=== PATIENT | female | born 1945 | race Caucasian/White ===

== ENCOUNTER 2016-07-28 08:28 | Emergency (ER) | payer BC, OTHER ==
[~2016-07-28] VITALS: Wt 79.0 kg
[2016-07-28] MEDS ORDERED: FAMOTIDINE 20 MG INJ IV STA (08:57)
[2016-07-28] MEDS ORDERED: LIDOCAINE/MYLANTA 40 ML BTL PO STA (08:57)
[2016-07-28] MEDS ORDERED: ONDANSETRON 4 MG INJ IV STA (08:57)
[2016-07-28] MEDS ORDERED: SOD CHLORIDE 0.9% 500 ML IV STA (08:57)
[2016-07-28] MEDS ORDERED: morphine 4 MG/ML VIAL IV STA (08:57)
--- NOTE | 2016-07-28 09:23 | ERA ---
ER Documentation Chief Complaint Date/Time DATE: 07/28/16 TIME: 09:21 Chief Complaint LEFT SIDED FLANK PAIN X 2 DAYS WITH FEVER/CHILLS HPI This is a 71-year-old female complaining of left upper quadrant pain that seems similar to her prior history of gastritis. The pain is described as a sharp pain sometimes worse after eating. She has no vomiting diarrhea no dysuria no chest pain or shortness of breath. The pain is off and on and not radiating. ROS All systems reviewed and are negative except as per history of present illness. Medications Home Meds Active Scripts Polyethylene Glycol* (Miralax*) 17 Gm Powd.pack, 17 GM PO DAILY, #30 PACKET Prov:ION ELDRIDGESTHELLENS A. DO 07/28/16 Omeprazole* (Omeprazole*) 40 Mg Capsule.dr, 40 MG PO DAILY, #30 CAP Prov:LEKKOSIONSTOLOS A. DO 07/28/16 Reported Medications Sucralfate* (Carafate*) 1 Gm Tab, 1 GM PO AC MEALS AND BEDTIME, TAB 07/28/16 Omeprazole* (Omeprazole*) 20 Mg Capsule.dr, 20 MG PO DAILY, #30 CAP 07/28/16 Nifedipine* (Nifedipine ER*) 30 Mg Tablet.sa, 30 MG PO DAILY, TAB.SA 07/28/16 Hydrochlorothiazide* (Hydrochlorothiazide*) 25 Mg Tab, 25 MG PO DAILY, #30 TAB 07/28/16 Allergies Allergies: Coded Allergies: No Known Allergy (Unverified , 11/11/13) PMhx/Soc Medical and Surgical Hx: pt denies Medical Hx History of Surgery: Yes (unknown) Anesthesia Reaction: No Hx Neurological Disorder: No Hx Respiratory Disorders: No Hx Cardiac Disorders: No Hx Psychiatric Problems: No Hx Miscellaneous Medical Probl: Yes (htn, gerd, constipation, hypothyroid) Hx Alcohol Use: No Hx Substance Use: No Hx Tobacco Use: No Smoking Status: Never smoker FmHx Family History: No coronary disease Physical Exam Vitals Vital Signs Date Time Temp Pulse Resp B/P Pulse Ox O2 Delivery O2 Flow Rate FiO2 07/28/16 09:30 75 18 161/67 99 Room Air 07/28/16 08:35 98.0 66 18 163/72 99 Physical Exam Const: Well-developed, well-nourished Head: Atraumatic, normocephalic Eyes: Normal Conjunctiva, PERRLA, EOMI, normal sclera, no nystagmus ENT: Normal External Ears, Nose and Mouth, moist mucus membranes. Neck: Full range of motion. No meningismus, no lymphadenopathy. Resp: Clear to auscultation bilaterally, no wheezing, rhonchi, rales Cardio: Regular rate and rhythm, no murmurs, S1 S2 present Abd: Soft, moderate left upper quadrant tenderness and mild left lower quadrant tenderness, non distended. Normal bowel sounds, no guarding or rebound , no pulsitile abdominal masses or bruits Skin: No petechiae or rashes, no ecchymosis , no maculopapular rash Back: No midline or flank tenderness Ext: No cyanosis, or edema, FROM x 4, normal inspection, neurovascularly intact x 4 Neur: Awake and alert, STR 5/5 x 4, sensation intact x 4, no focal findings, cerebellum intact Psych: Normal Mood and Affect Result Diagram: 07/28/16 0940 07/28/16 0940 Results 24 hrs Laboratory Tests Test 07/28/16 09:40 White Blood Count 7.610^3/ul Red Blood Count 4.4810^6/ul Hemoglobin 14.9g/dl Hematocrit 42.0% Mean Corpuscular Volume 93.8fl Mean Corpuscular Hemoglobin 33.3pg Mean Corpuscular Hemoglobin Concent 35.5g/dl Red Cell Distribution Width 12.3% Platelet Count 55144^3/UL Mean Platelet Volume 10.3fl Neutrophils % 73.1% Lymphocytes % 20.4% Monocytes % 5.7% Eosinophils % 0.1% Basophils % 0.4% Nucleated Red Blood Cells % 0.0/100WBC Neutrophils # 5.610^3/ul Lymphocytes # 1.610^3/ul Monocytes # 0.410^3/ul Eosinophils # 0.010^3/ul Basophils # 0.010^3/ul Nucleated Red Blood Cells # 0.010^3/ul Sodium Level 136mmol/L Potassium Level 2.9mmol/L Chloride Level 92mmol/L Carbon Dioxide Level 30mmol/L Anion Gap 17 Blood Urea Nitrogen 15mg/dl Creatinine 0.67mg/dl Glucose Level 124mg/dl Calcium Level 9.5mg/dl Total Bilirubin 0.3mg/dl Direct Bilirubin 0.00mg/dl Indirect Bilirubin 0.3mg/dl Aspartate Amino Transf (AST/SGOT) 33IU/L Alanine Aminotransferase (ALT/SGPT) 27IU/L Alkaline Phosphatase 104IU/L Total Protein 9.2g/dl Albumin 4.6g/dl Globulin 4.60g/dl Albumin/Globulin Ratio 1.00 Lipase 220U/L Current Medications Medications (Trade) Dose Ordered Sig/Nuha Route PRN Reason Start Time Stop Time Status Last Admin Dose Admin Sodium Chloride (NS) 500 ml @ 500 mls/hr Q1H STAT IV 07/28/16 08:57 07/28/16 09:56 DC 07/28/16 11:07 Morphine Sulfate (morphine) 4 mg ONCE STAT IV 07/28/16 08:57 07/28/16 08:59 DC 07/28/16 11:09 Ondansetron HCl (Zofran Inj) 4 mg ONCE STAT IV 07/28/16 08:57 07/28/16 08:59 DC 07/28/16 11:09 Famotidine (Pepcid Iv) 20 mg ONCE STAT IV 07/28/16 08:57 07/28/16 08:59 DC 07/28/16 11:09 Miscellaneous Medication 40 ml 40 ml ONCE STAT PO 07/28/16 08:57 07/28/16 08:59 DC 07/28/16 11:07 Potassium Chloride 20 meq/ Sodium Chloride 110 ml @ 55 mls/hr ONCE ONCE IVPB 07/28/16 11:00 07/28/16 12:59 DC 07/28/16 13:00 Sodium Chloride (NS) 100 ml @ ud STK-MED ONCE .ROUTE 07/28/16 11:48 07/28/16 11:49 DC 07/28/16 11:57 Iohexol (Omnipaque 300mg/ ml) 150 ml STK-MED ONCE .ROUTE 07/28/16 11:48 07/28/16 11:49 DC 07/28/16 11:57 Procedures/MDM PROCEDURE: CT scan of the abdomen and pelvis with and without IV contrast. CLINICAL INDICATION: Left lower quadrant and and left upper quadrant pain. TECHNIQUE: Thin section axial, coronal and sagittal images were performed through the abdomen and pelvis without contrast and then following the injection of 100 cc of Isovue 370. Low-dose protocol imaging was utilized. One or more of the following dose reduction techniques were used: - Automated exposure control. - Adjustment of the mA and/or kV according to patient size. Use of iterative reconstruction technique. Radiation Dose: CTDI: 21.1 and DLP: 1125.3. COMPARISON: Abdominal sonogram 05/27/2013. FINDINGS: Lungs and pleural space: The lungs are hyperinflated with increased AP diameter the chest noted. No acute infiltrate or pleural effusion is identified. No pulmonary nodules identified. Heart: Normal as visualized. No pericardial effusion is present. The liver, common bile duct and gallbladder: There is enlarged measuring 16.7 cm AP. The hepatic and portal veins are patent. The gallbladder and gallbladder wall are normal. The extrahepatic common bile duct is dilated measuring 8.5 mm. Pancreas: The pancreas is normal. Gastrointestinal: There is no hiatal hernia. The stomach and small bowel loops are unremarkable. There is fecal material throughout most of the colon. Symmetric thickening of the rectal ampulla is attributed to incomplete distension. The vermiform appendix is normal. There is no evidence of diverticulosis or diverticulitis. A small midline umbilical hernia is identified measuring up to 3.8 cm and sagittal/AP diameter with the transverse diameter of the neck of the hernia measuring 1.4 cm. There is a second midline umbilical hernia located 3.8 cm inferior to the umbilicus. Neck of the hernia measures 1.6 cm. Kidneys and bladder : There are tiny benign subcapsular cyst arising off of lateral mid pole of the left kidney. Largest measures 6.8 mm. No additional follow-up recommended. The urinary bladder is normal. No bladder wall thickening or bladder stone is identified. Adrenal glands: Normal. Spleen: Normal. Lymph nodes: There is small calcified lymph nodes in the pelvis. No pathologically enlarged lymph node is identified.. Reproductive system: There is a 1.8 x 1.5 cm benign left ovarian cyst. There is a 7 mm calcification adjacent to the cyst. This would be best assessed with a pelvic sonogram but is likely benign. Bony elements: There are degenerative changes in the lower thoracic and lumbar spine. There is a space narrowing and vacuum disk phenomenon at L5-S1. Vasculature: Atherosclerotic vascular disease. no aneurysm or vascular stenosis is identified in the field of view. IMPRESSION: 1. Hepatomegaly. The liver measures 16.7 cm AP. Dilated extrahepatic common bile duct measuring 8.5 mm. No pancreatic mass or choledocholith is identified. 2. Constipation. 3. Small benign renal cysts are identified in conjunction with the left kidney which required no additional follow-up. 4. Midline umbilical hernia containing fat. The neck of the hernia measures 1.4 cm transverse. Hernia measures 3.8 cm sagittal. 5. 3.8 cm inferior to the umbilical hernia is a second midline anterior abdominal wall hernia measuring 2.5 cm AP with the neck of the hernia measuring 1.5 cm transverse. 6. Atherosclerotic vascular disease. 7. 1.8 by 1.5 cm benign left ovarian cyst. 6.7 mm calcification along the periphery of the cyst. The latter is likely a calcified pelvic lymph node. 8. Pulmonary hyperinflation. RPTAT:AAJJ Physician Carl Date Time Electronically viewed and signed by Compa Nick Physician on 07/28/2016 12:30 JM/ CC: RENATO ELDRIDGE DO Patient's blood work is unremarkable. The patient says it feels like prior gastritis and I feel this is consistent with her exam and history. We will provide her with some omeprazole and MiraLAX to clear the colon. A signs and symptoms to return Departure Diagnosis: Primary Impression: Constipation Qualified Code: K59.00 - Constipation, unspecified constipation type Additional Impression: Gastritis Qualified Code: K29.00 - Acute gastritis, presence of bleeding unspecified, unspecified gastritis type Condition: Stable RENATO ELDRIDGE DO July 28, 2016 09:23
[2016-07-28 10:16] LABS: ADD SCAN DIFF NO
[2016-07-28 10:21] LABS: BASOPHILS % 0.4 % (0.0-2.0); EOSINOPHILS % 0.1 % (0.0-7.0); HEMOGLOBIN 14.9 g/dl (12.0-16.0); LYMPHOCYTES # 1.6 10^3/ul (0.8-2.9); LYMPHOCYTES % 20.4 % (15.0-51.0); MEAN CORPUSCULAR HEMOGLOBIN 33.3 pg (29.0-33.0); MEAN CORPUSCULAR HGB CONC 35.5 g/dl (32.0-37.0); MEAN CORPUSCULAR VOLUME 93.8 fl (82.0-101.0); MEAN PLATELET VOLUME 10.3 fl (7.4-10.4); MONOCYTE # 0.4 10^3/ul (0.3-0.9); MONOCYTES % 5.7 % (0.0-11.0); NEUTROPHIL # 5.6 10^3/ul (1.6-7.5); NEUTROPHILS % 73.1 % (39.0-77.0); PLATELET COUNT 255 10^3/UL (140-415); RED BLOOD COUNT 4.48 10^6/ul (4.20-5.40); RED CELL DISTRIBUTION WIDTH 12.3 % (11.5-14.5); WHITE BLOOD COUNT 7.6 10^3/ul (4.8-10.8)
[2016-07-28 10:38] LABS: ALBUMIN 4.6 g/dl (3.3-4.9)
[2016-07-28 10:41] LABS: BILIRUBIN,INDIRECT 0.3 mg/dl (0-1.1); BILIRUBIN,TOTAL 0.3 mg/dl (0.2-1.3); CREATININE 0.67 mg/dl (0.44-1.00); TOTAL PROTEIN 9.2 g/dl (6.1-8.1)
[2016-07-28 10:42] LABS: CALCIUM 9.5 mg/dl (8.4-10.2)
[2016-07-28 10:46] LABS: POTASSIUM 2.9 mmol/L (3.5-5.1)
[2016-07-28] MEDS ORDERED: OMEP20CA16 PO (10:51)
[2016-07-28] MEDS ORDERED: NIFE30TA60 PO (10:51)
[2016-07-28] MEDS ORDERED: SUCR1TAB56 PO (10:51)
[2016-07-28] MEDS ORDERED: HYD25 PO (10:51)
[2016-07-28] MEDS ORDERED: POTASSIUM CHLORIDE 20 MEQ in SOD CHLORIDE 0.9% 100 ML IVPB ONE (11:00)
[2016-07-28] MEDS ORDERED: IOHEXOL 300MG/ML 150 ML BTL ONE (11:48)
[2016-07-28] MEDS ORDERED: SOD CHLORIDE 0.9% 100 ML ONE (11:48)
--- NOTE | 2016-07-28 12:30 | RADRPT ---
PROCEDURE: CT scan of the abdomen and pelvis with and without IV contrast. CLINICAL INDICATION: Left lower quadrant and and left upper quadrant pain. TECHNIQUE: Thin section axial, coronal and sagittal images were performed through the abdomen and pelvis without contrast and then following the injection of 100 cc of Isovue 370. Low-dose protocol imaging was utilized. One or more of the following dose reduction techniques were used: - Automated exposure control. - Adjustment of the mA and/or kV according to patient size. Use of iterative reconstruction technique. Radiation Dose: CTDI: 21.1 and DLP: 1125.3. COMPARISON: Abdominal sonogram 05/27/2013. FINDINGS: Lungs and pleural space: The lungs are hyperinflated with increased AP diameter the chest noted. No acute infiltrate or pleural effusion is identified. No pulmonary nodules identified. Heart: Normal as visualized. No pericardial effusion is present. The liver, common bile duct and gallbladder: There is enlarged measuring 16.7 cm AP. The hepatic an d portal veins are patent. The gallbladder and gallbladder wall are normal. The extrahepatic commo n bile duct is dilated measuring 8.5 mm. Pancreas: The pancreas is normal. Gastrointestinal: There is no hiatal hernia. The stomach and small bowel loops are unremarkable. T here is fecal material throughout most of the colon. Symmetric thickening of the rectal ampulla is attributed to incomplete distension. The vermiform appendix is normal. There is no evidence of div erticulosis or diverticulitis. A small midline umbilical hernia is identified measuring up to 3.8 c m and sagittal/AP diameter with the transverse diameter of the neck of the hernia measuring 1.4 cm. There is a second midline umbilical hernia located 3.8 cm inferior to the umbilicus. Neck of the he rnia measures 1.6 cm. Kidneys and bladder : There are tiny benign subcapsular cyst arising off of lateral mid pole of the left kidney. Largest measures 6.8 mm. No additional follow-up recommended. The urinary bladder is normal. No bladder wall thickening or bladder stone is identified. Adrenal glands: Normal. Spleen: Normal. Lymph nodes: There is small calcified lymph nodes in the pelvis. No pathologically enlarged lymph n ode is identified.. Reproductive system: There is a 1.8 x 1.5 cm benign left ovarian cyst. There is a 7 mm calcification adjacent to the cyst. This would be best assessed with a pelvic sonogram but is likely benign. Bony elements: There are degenerative changes in the lower thoracic and lumbar spine. There is a sp lucio narrowing and vacuum disk phenomenon at L5-S1. Vasculature: Atherosclerotic vascular disease. no aneurysm or vascular stenosis is identified in th e field of view. IMPRESSION: 1. Hepatomegaly. The liver measures 16.7 cm AP. Dilated extrahepatic common bile duct measuring 8.5 mm. No pancreatic mass or choledocholith is identified. 2. Constipation. 3. Small benign renal cysts are identified in conjunction with the left kidney which required no ad ditional follow-up. 4. Midline umbilical hernia containing fat. The neck of the hernia measures 1.4 cm transverse. He rnia measures 3.8 cm sagittal. 5. 3.8 cm inferior to the umbilical hernia is a second midline anterior abdominal wall hernia measu ring 2.5 cm AP with the neck of the hernia measuring 1.5 cm transverse. 6. Atherosclerotic vascular disease. 7. 1.8 by 1.5 cm benign left ovarian cyst. 6.7 mm calcification along the periphery of the cyst. T he latter is likely a calcified pelvic lymph node. 8. Pulmonary hyperinflation. RPTAT:AAJJ Physician Carl Date Time Electronically viewed and signed by Compa Nick Physician on 07/28/2016 12:30 /
[2016-07-28] MEDS ORDERED: OMEP40CA6 PO (13:57)
[2016-07-28] MEDS ORDERED: POLY17PO6 PO (13:57)
[2016-07-28 15:17] VITALS: BP 157/61; PULSE 70; RESP 20
== END 2016-07-28 15:18 | disposition home or self-care (01) ==
LOC: E/R 08:28
DX: K59.00 Constipation, unspecified (principal); R40.2142 Coma scale, eyes open, spontaneous, at arrival to emergency department; K29.00 Acute gastritis without bleeding; I10 Essential (primary) hypertension; E03.9 Hypothyroidism, unspecified; R40.2252 Coma scale, best verbal response, oriented, at arrival to emergency department
CPT/HCPCS: 36415; 74177; 80053; 83690; 85025; 96374; 96375; J2270; J2405; J3480; J7040; Q9967; Z7502; Z7610

== ENCOUNTER 2016-10-11 16:43 | Emergency (ER) | payer BC ==
[~2016-10-11] VITALS: Wt 82.0 kg
[~2016-10-11 16:43] MED LIST: HYD25 PO; NIFE30TA60 PO; OMEP20CA16 PO; OMEP40CA6 PO; POLY17PO6 PO; SUCR1TAB56 PO
[2016-10-11] MEDS ORDERED: HYDROCODONE/APAP (5/325) TAB PO ONE (17:30)
--- NOTE | 2016-10-11 18:49 | RADRPT ---
PROCEDURE: CT Orbits without contrast. CLINICAL INDICATION: Left mastoid tenderness. TECHNIQUE: A CT of the orbits was performed utilizing thin section axial images without the use of intravenous contrast. Sagittal and coronal reformatted images were made. The images were reviewed on a PACS workstation. The CTDIvol is 29.05 mGy and the DLP is 333.10 mGycm. COMPARISON: None. FINDINGS: The left mastoid air cells are well-aerated without evident fluid. The right mastoid air cells are relatively hypoplastic when compared to the left, also without evident fluid. The osseous structures are intact with no fracture or osseous abnormality identified. The extraocul ar muscles and optic nerves are bilaterally symmetric and normal in appearance. The globes are unre markable. The lacrimal glands appear normal. No abnormal attenuation of the intra or extraconal fa t is identified. The sella turcica is unremarkable. Partially visualized brain demonstrates chronic changes of atrophy. IMPRESSION: Unremarkable left mastoid air cells. RPTAT: [facility]U Physician Dimitry Date Time Electronically viewed and signed by Physician Dimitry on 10/11/2016 18:49 RS/
[2016-10-11] MEDS ORDERED: NPH10OT LEFT EAR (18:55)
[2016-10-11] MEDS ORDERED: AMO500 PO (18:55)
[2016-10-11] MEDS ORDERED: HYDR-906 PO (18:56)
--- NOTE | 2016-10-11 19:26 | ERD ---
ER Documentation Chief Complaint Date/Time DATE: 10/11/16 TIME: 19:23 Chief Complaint LEFT EAR PAIN FOR THE PAST FEW DAYS. NO COUGH OR CONGESTION OR FEVERS HPI This is a 71-year-old female presents to the ER with left ear pain has been going on for the last 6 months after she had an ear lavage. Her daughter took patient to her primary care doctor where she was diagnosed with continued cerumen impaction was given Debrox. They have been using drops for the last 3 days however patient states that this is making her pain worse and that she is losing her hearing. Patient denies any fevers or chills. She denies any cough or cold symptoms. She denies any headaches. ROS 12 point review of systems was done, all negative except per HPI. Medications Home Meds Active Scripts Hydrocodone/Acetaminophen ([place] 5-325 Tablet) 1 Each Tablet, 1 TAB PO Q6H Y for PAIN, #20 TAB Prov:EM NAVARRO 10/11/16 Neomycin/Polymyxin/Hydrocort* (Cortisporin* Otic) 10 Ml Susp, 4 DROP LEFT EAR QID for 7 Days, EA Prov:EM NAVARRO 10/11/16 Amoxicillin* (Amoxicillin*) 500 Mg Cap, 500 MG PO BID for 10 Days, CAP Prov:EM NAVARRO 10/11/16 Polyethylene Glycol* (Miralax*) 17 Gm Powd.pack, 17 GM PO DAILY, #30 PACKET Prov:RENATO ELDRIDGE DO 07/28/16 Omeprazole* (Omeprazole*) 40 Mg Capsule.dr, 40 MG PO DAILY, #30 CAP Prov:RENATO ELDRIDGE DO 07/28/16 Reported Medications Sucralfate* (Carafate*) 1 Gm Tab, 1 GM PO AC MEALS AND BEDTIME, TAB 07/28/16 Omeprazole* (Omeprazole*) 20 Mg Capsule.dr, 20 MG PO DAILY, #30 CAP 07/28/16 Nifedipine* (Nifedipine ER*) 30 Mg Tablet.sa, 30 MG PO DAILY, TAB.SA 07/28/16 Hydrochlorothiazide* (Hydrochlorothiazide*) 25 Mg Tab, 25 MG PO DAILY, #30 TAB 07/28/16 Allergies Allergies: Coded Allergies: No Known Allergy (Unverified , 10/11/16) PMhx/Soc History of Surgery: Yes (eyes) Anesthesia Reaction: No Hx Neurological Disorder: No Hx Respiratory Disorders: No Hx Cardiac Disorders: No Hx Psychiatric Problems: No Hx Miscellaneous Medical Probl: Yes (htn, gerd, constipation, hypothyroid) Hx Alcohol Use: No Hx Substance Use: No Hx Tobacco Use: No Smoking Status: Never smoker Physical Exam Vitals Vital Signs Date Time Temp Pulse Resp B/P Pulse Ox O2 Delivery O2 Flow Rate FiO2 10/11/16 16:46 98.8 83 20 184/75 98 Physical Exam GENERAL: The patient is well developed and appropriate for usual state of health , in no apparent distress. HEENT: Atraumatic. Conjunctivae are pink. Pupils equal, round, and reactive to light. Extraocular muscles are grossly intact left auditory canal is erythematous and is tender to palpation when examined with ear speculum. There is no discharge seen in the external ear canal. Tympanic membrane is not visualized secondary to cerumen impaction. Patient has tragus tenderness and mastoid tenderness on the left. Right ear is normal with normal TMs and external canal. The oropharynx is clear with no erythema or exudates. CHEST: Clear to auscultation bilaterally. There are no rales, wheezes or rhonchi. HEART: Regular rate and rhythm. No murmurs, clicks, rubs or gallops. NEURO: Alert and oriented. Results 24 hrs Current Medications Medications (Trade) Dose Ordered Sig/Nuha Route PRN Reason Start Time Stop Time Status Last Admin Dose Admin Acetaminophen/ Hydrocodone Bitart ([place] (5/325)) 1 tab ONCE ONCE PO 10/11/16 17:30 10/11/16 17:31 DC 10/11/16 18:04 Procedures/MDM This is a 71-year-old female presents to the ER with left ear pain. Patient has had this problem over the last 6 months and does have severe cerumen impaction. Patient refused any ear lavage as she states that the last time they did when she felt worse. We attempted to take out cerumen with ear curette , however patient was expressing a lot of pain and he had to stop. CT scan was done and was negative for mastoiditis. Patient is afebrile and well-appearing. She will be treated for possible otitis externa she does have tragus tenderness, erythema and pain to the external ear canal. Patient needs to follow-up with her primary care doctor and request an ENT referral. I shared my medical decision making with the daughter she understands and agrees with plan. Departure Diagnosis: Primary Impression: Left ear pain Condition: Stable Patient Instructions: Otitis Externa (Child) Referrals: [facility] (PCP) Additional Instructions: Llame al doctor MITZI y natanael lyndon GAUTAM PARA DENTRO DE 1-2 HERNANDEZ.Dgale a la secretaria que nosotros le instruimos hacer esta gautam.Avise o llame si nugent condicin se empeora antes de la gautam. Regresa aqui si peor o no mejor. TIENE QUE IR A EMILY UN ESPECIALIST HENT LO MAS PRONTO POSIBLE EM NAVARRO Oct 11, 2016 19:26
== END 2016-10-11 19:08 | disposition home or self-care (01) ==
LOC: FTE 16:43
DX: H92.02 Otalgia, left ear (principal); I10 Essential (primary) hypertension; E03.9 Hypothyroidism, unspecified
CPT/HCPCS: 70480; Z7502; Z7610

== ENCOUNTER 2017-03-05 18:45 | Inpatient (IN) | END 2017-03-08 14:41 | disposition home or self-care (01) | DRG 871 ==